=== PATIENT | female | born 1950 | race Caucasian/White ===

== ENCOUNTER → 2024-10-29 10:26 | Outpatient (REF) | payer MEDICARE, OTHER, SELFPAY ==
[2024-10-29 12:10] LABS: C-Reactive Protein < 5.00 mg/L (0.0-10.00)
== END ==
LOC: REG 10:26
PROVIDERS: ATTENDING PHYSICIAN Ophthalmology; FAMILY PHYSICIAN Family Medicine
DX: H57.13 Ocular pain, bilateral (principal)
CPT/HCPCS: 36415; 85652; 86140

== ENCOUNTER → 2024-12-10 10:35 | Outpatient (REF) | payer MEDICARE, OTHER, SELFPAY | LOC: HWRAD 10:35 | PROVIDERS: ATTENDING PHYSICIAN Family Medicine | DX: Z13.820 Encounter for screening for osteoporosis (principal); Z78.0 Asymptomatic menopausal state | CPT/HCPCS: 77080 ==